=== PATIENT | male | born 1960 | race Caucasian/White ===

== ENCOUNTER 2017-04-28 14:25 | Outpatient (CLI) | payer OTHER ==
[2017-04-28 15:19] LABS: Hemoglobin 14.1 g/dL (14.0-18.0); Mean Corpuscular HGB CONC 33.7 g/dL (32.0-36.0); Mean Corpuscular Hemoglobin 30.4 pg (27.0-31.0); Mean Corpuscular Volume 90.2 fl (80.0-94.0); Mean Platelet Volume 7.7 fL (7.4-10.4); Platelet Count 291 thou/uL (130-400); RBC Distribution Width 12.2 % (11.5-14.5); Red Blood Cell (RBC) Count 4.62 mill/uL (4.70-6.10); White Blood Cell (WBC) Count 6.3 thou/uL (4.8-10.8)
[2017-04-28 15:38] LABS: Anion Gap 13 mmol/L (10-20); BUN (Urea Nitrogen) 13 mg/dL (8.4-25.7); Calc. Creatinine Clearance 0 mL/min (70-130); Calcium 9.2 mg/dL (7.8-10.44); Carbon Dioxide 23 mmol/L (22-29); Chloride 105 mmol/L (98-107); Estimated GFR-MDRD Greater than 90; Glucose 159 mg/dL (70-105); Potassium 3.9 mmol/L (3.5-5.1); Sodium 137 mmol/L (136-145)
== END 2017-04-28 14:26 | disposition home or self-care (01) ==
LOC: LABBT 14:25
PROVIDERS: ATTEND Orthopaedic Surgery
DX: Z01.810 Encounter for preprocedural cardiovascular examination (principal); Z01.812 Encounter for preprocedural laboratory examination; S83.242A Other tear of medial meniscus, current injury, left knee, initial encounter
CPT/HCPCS: 80048; 85027; 93005; 93010

== ENCOUNTER 2017-05-04 05:59 | Day surgery (SDC) | payer OTHER ==
[2017-04-28 14:38] VITALS: BMI 31.1
[2017-05-04] MEDS ORDERED: PROPOFOL 20 ML ONE (06:24)
[2017-05-04] MEDS ORDERED: CEFAZOLIN/Water 2 GM/20 ML SYRINGE ONE (06:55)
[2017-05-04] MEDS ORDERED: Morphine 4 MG/ML VIAL ONE (07:20)
[2017-05-04] MEDS ORDERED: PROPOFOL 200 MG/20 ML VIAL ONE (07:50)
[2017-05-04] MEDS ORDERED: Lidocaine 1% PF 5 ML VIAL ONE (07:50)
[2017-05-04] MEDS ORDERED: Ondansetron HCl/PF 4 MG/2 ML Vial ONE (07:50)
[2017-05-04] MEDS ORDERED: Ketorolac Tromethamine 30 MG/ML VIAL ONE (07:50)
--- NOTE | 2017-05-04 13:51 | OP ---
PREOPERATIVE DIAGNOSIS: Medial meniscus tear, left knee. POSTOPERATIVE DIAGNOSIS: Medial meniscus tear, left knee. SURGEON: Axel Butler M.D. ANESTHESIA: General. BLOOD LOSS: Minimal. SPECIMEN: None. DRAINS: None. COMPLICATIONS: None. TOURNIQUET: Not used. DESCRIPTION OF PROCEDURE: The patient was placed in a leg de la cruz and prepped and draped in usual gray rile fashion. Scope was placed in the lateral portal and probe was placed in medial portal. 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 I used a series of basket forceps to debride the posterior medial meniscus and smoothened this with a 4-0 full radius resector, probed the meniscus and confirmed it was stable. I did debride the articular cartilage on the medial femoral c ondyle slightly just to remove cartilaginous flap tears. I copiously irrigated the knee and re moved multiple cartilaginous loose bodies. The knee was then drained. Sterile dressings applied.
[2017-05-04] MEDS ORDERED: Lidocaine 2% w/Epinephrine 1:200K 20 ML VIAL ONE (14:31)
[2017-05-04] MEDS ORDERED: Bupivacaine HCl 0.5%/Epinephrine 1:200,000/PF 30 ml Vial ONE (14:31)
== END 2017-05-04 10:10 | disposition home or self-care (01) ==
LOC: SDC 05:59
PROVIDERS: ATTEND Orthopaedic Surgery
PROC: 0SBD4ZZ Excision of Left Knee Joint, Percutaneous Endoscopic Approach (ICD-10-PCS; principal; 2017-05-04)
DX: S83.232A Complex tear of medial meniscus, current injury, left knee, initial encounter (principal); M94.262 Chondromalacia, left knee; M17.12 Unilateral primary osteoarthritis, left knee; E11.9 Type 2 diabetes mellitus without complications
CPT/HCPCS: G8978-GP-CI; G8979-GP-CI; G8980-GP-CI; J0670; J1885; J2001; J2270; J2405; J2704